=== PATIENT | female | born 1940 | race Caucasian/White ===

== ENCOUNTER 2017-02-09 07:44 | Day surgery (SDC) | payer OTHER, MEDICAID ==
[2017-02-09] MEDS ORDERED: LR 1,000 ML IV ONE (08:26)
[2017-02-09 08:40] VITALS: TEMP 98.1
--- NOTE | 2017-02-09 08:44 | CPEKG ---
Heart Rate: 84 RR Interval: 714 P-R Interval: 116 QRSD Interval: 78 QT Interval: 392 QTC Interval: 464 P Orange: -3 QRS Orange: -65 T Wave Orange: 46 EKG Severity - ABNORMAL ECG - EKG Impression: SINUS RHYTHM EKG Impression: LEFT ANTERIOR FASCICULAR BLOCK EKG Impression: CONSIDER RVH W/ SECONDARY REPOL ABNORMALITY EKG Impression: ANTERIOR T WAVE ABNORMALITIES - CANNOT RULE OUT ISCHEMIA Electronically Signed By: Faustina Ridley 09-Feb-2017 11:54:13
--- NOTE | 2017-02-09 09:30 | PDGENHP ---
History & Physical Chief Complaint: DYSPHAGIA History of Present Illness: DYSPHAGIA Pertinent Past, Social, Family History: no tobacco or alcohol. fhx no colon cance. COPD need for oxygen Relevant Physical Exam: a+ox3. cta. s1s2. +Bs, soft nt Cardiorespiratory Assessment: class 4
--- NOTE | 2017-02-09 09:31 | PDANEPAE ---
ANE Past Medical History - Cardiovascular History Hx Hypertension: Yes Hx Arrhythmias: Yes Hx Chest Pain: No Hx Coronary Artery / Peripheral Vascular Disease: Yes Hx CHF / Valvular Disease: Yes Hx Palpitations: Yes Cardiovascular History Comment: HYPERLIPIDEMIA - Pulmonary History Hx COPD: Yes Hx Asthma/Reactive Airway Disease: Yes Hx Recent Upper Respiratory Infection: No Hx Oxygen in Use at Home: Yes O2 in Use at Home (L/minute): O2 2L CONT. Hx Sleep Apnea: No Sleep Apnea Screening Result - Last Documented: Negative - Neurologic History Hx Cerebrovascular Accident: Yes Neurologic History Comment: RESTLESS LEG SYNDROME - Endocrine History Hx Diabetes: Yes Endocrine History Comment: DM II - Neurological & Psychiatric Hx Hx Neurological and Psychiatric Disorders: Yes Neurological / Psychiatric History Comment: DEPRESSIVE DISORDER. ANXIETY - GI History Hx Gastrointestinal Disorders: Yes Gastrointestinal History Comment: GERD. CONSTIPATION - Other Health History Other Health History: BEHCET'S DISEASE. OSTEOARTHRITIS. GLOSSITIS ANE Review of Systems Review of Systems: - Exercise capacity METS (RN): 3 METS ANE Patient History - Allergies Allergies/Adverse Reactions: adhesive tape Allergy (Verified 02/08/17 18:40) Sulfa (Sulfonamide Antibiotics) Allergy (Verified 02/08/17 18:39) warfarin [From Coumadin] Allergy (Verified 02/08/17 18:39) - Home Medications Home Medications: Aspirin 02/08/17 [Last Taken Unknown] Ativan 02/08/17 [Last Taken Unknown] Celexa 02/08/17 [Last Taken Unknown] Colchicine 02/08/17 [Last Taken Unknown] Flonase Nasal Lotus 02/08/17 [Last Taken Unknown] Herbals/Supplements -Info Only 02/08/17 [Last Taken Unknown] Lipitor 02/08/17 [Last Taken Unknown] Metformin HCl 02/08/17 [Last Taken Unknown] Mucinex 02/08/17 [Last Taken Unknown] Justice 5/325 (*) 02/08/17 [Last Taken Unknown] Nystatin 02/08/17 [Last Taken Unknown] Pantoprazole Sodium 02/08/17 [Last Taken Unknown] Requip 02/08/17 [Last Taken Unknown] Senna 02/08/17 [Last Taken Unknown] Spiriva Inhaler (RX) 02/08/17 [Last Taken Unknown] Symbicort 80-4.5 Mcg Inhaler 02/08/17 [Last Taken Unknown] Triamcinolone 0.025% 02/08/17 [Last Taken Unknown] - NPO status NPO Since - Liquids (Date): 02/08/17 NPO Since - Liquids (Time): 19:30 NPO Since - Solids (Date): 02/08/17 NPO Since - Solids (Time): 19:30 - Smoking Hx Smoking Status: Never smoked ANE Labs/Vital Signs - Vital Signs Blood Pressure: 144/89 Heart Rate: 88 Respiratory Rate: 16 O2 Sat (%): 96 Height: 167.64 cm Weight: 79.832 kg ANE Physical Exam - Airway Neck exam: FROM Mallampati Score: Class 2 Mouth exam: dentures - Pulmonary Pulmonary: reduced air movement, expiratory wheeze, other (chronic respiratory insufficency, end stage COPD) - Cardiovascular Cardiovascular: regular rate and rhythym, no murmur, rub, or gallop - ASA Status ASA Status: IV ANE Anesthesia Plan Anesthesia Plan: MAC
[2017-02-09] MEDS ORDERED: PROPOFOL 200 MG/20 ML VIAL ONE (09:39)
[2017-02-09] MEDS ORDERED: ALBUTEROL 3 ML DEYVIAL IH PRN (09:43)
[2017-02-09] MEDS ORDERED: NALOXONE HCL 0.4 MG/ML INJ IVP PRN (09:43)
--- NOTE | 2017-02-09 10:21 | POSTANESTH ---
Post Anesthetic Evaluation Cardiovascular Status: Normal, Stable, Similar to Pre-Op Cond Respiratory Status: Normal, Stable, Similar to Pre-op Cond. Level of Consciousness/Mental Status: Can Participate in Eval Pain Control: Adequate, Prn Tx Ordered Nausea/Vomiting Control: Adequate, Prn Tx Ordered Complications Possibly Related to Anesthesia: None Noted
[2017-02-09 10:34] VITALS: O2SAT 96
--- NOTE | 2017-02-09 10:35 | GIREPORT ---
[facility] Surgical Services - Endoscopy Department Patient Name: Josie Mendoza Procedure Date: 02/09/2017 9:36 AM Patient Type: Outpatient Attending / ER Physician: Diana Narvaez Procedure: Upper GI endoscopy Indications: Dysphagia Providers: Panda Christian MD Medicines: Sedation Required Anesthesia Staff Assistance, IV general Complications: No immediate complications. Estimated blood loss: Minimal. Description of Procedure: After obtaining informed consent, the endoscope was passed under direct vision. Throughout the procedure, the patient's blood pressure, pulse, and oxygen saturations were monitored continuously. The Endoscope was intro duced through the mouth, and advanced to the second part of duodenum. The [facility] GI endoscopy was accomplished without difficulty. The patient tolerated th e procedure well. Findings: The gastroesophageal junction was normal. A TTS dilator was passed through the scope. Dilation w ith an 18-19-20 mm balloon dilator was performed to 20 mm. The dilation site was examined and showed no change. Estimated blood loss: none. The examined esophagus was normal. A guidewire was placed and the scope was withdrawn. Dilation was performed with a Savary dilator with no resistance at 60 Fr. Estimated blood loss: none. Scattered moderate inflammation characterized by erythema and granularity was found in the gastr ic antrum. Biopsies were taken with a cold forceps for histology. Estimated blood loss was minimal. The examined duodenum was normal. The exam was otherwise without abnormality. Estimated Blood Loss: Estimated blood loss was minimal. Post Op Diagnosis: - Normal gastroesophageal junction. Dilated. No visible effect. Therefore passed the 59 [place] Savary, also with no visible effect. - Normal esophagus. Dilated. - Gastritis. Biopsied. - Normal examined duodenum. - The examination was otherwise normal. Recommendation: - Await pathology results. - My office will call with the pathology result with 5-7 days. If you have not heard from my off ice by 05-03, do not assume the pathology is normal, please call [phone] to get the pathology r eults. - Follow an antireflux regimen. - Use Protonix (pantoprazole) 40 mg PO daily. Take 30-60 minutes before breakfast - If dysphagia conitnues consider an ambulatory esophageal manometry at appointment to be schedu led. - Discharge patient to home (ambulatory). - Return to GI clinic PRN. - Return to primary care physician as previously scheduled. - Thank you for allowing me to help in your patient's care. Do not hesitate to call with any questions. Attending Participation: I personally performed the entire procedure. Anahi Mosqueda M.D Panda Christian MD 02/09/2017 10:35:45 AM Number of Addenda: 0 Note Initiated On: 02/09/2017 9:36 AM Total Procedure Duration Time 0 hours 9 minutes 54 seconds [email or web address]
[2017-02-09 10:48] VITALS: BP 140/84; PULSE 77; RESP 14
== END 2017-02-09 11:16 | disposition home or self-care (01) ==
LOC: FSGY 07:44
PROVIDERS: ATTEND Internal Medicine Gastroenterology
DX: R13.10 Dysphagia, unspecified (principal); K29.70 Gastritis, unspecified, without bleeding; K21.9 Gastro-esophageal reflux disease without esophagitis; J44.9 Chronic obstructive pulmonary disease, unspecified; E78.5 Hyperlipidemia, unspecified; G25.81 Restless legs syndrome; E11.9 Type 2 diabetes mellitus without complications; F32.9 Major depressive disorder, single episode, unspecified; F41.9 Anxiety disorder, unspecified; M35.2 Behcet's disease; Z88.2 Allergy status to sulfonamides
CPT/HCPCS: 43239; 43248; 43249; 93005; C1726; J2704

== ENCOUNTER → 2017-09-20 | Outpatient (CLI) | payer OTHER, MEDICAID ==
[~2017-09-20] MED LIST: IOPAMIDOL (ISOVUE-300) 100 ML BTL ONE
== END ==
LOC: FIMAGING 08:43
DX: R91.1 Solitary pulmonary nodule (principal); K44.9 Diaphragmatic hernia without obstruction or gangrene
CPT/HCPCS: 74160; Q9967

== ENCOUNTER 2018-08-02 08:26 | Day surgery (SDC) | payer OTHER, MEDICAID ==
--- NOTE | 2018-08-02 08:51 | PDANEPAE ---
ANE History of Present Illness dysphagia here for EGD ANE Past Medical History - Cardiovascular History Hx Hypertension: No Hx Arrhythmias: No Hx Chest Pain: No Hx Coronary Artery / Peripheral Vascular Disease: No Hx CHF / Valvular Disease: No Hx Palpitations: No Cardiovascular History Comment: HYPERLIPIDEMIA, hx of angina - Pulmonary History Hx COPD: Yes Hx Asthma/Reactive Airway Disease: No Hx Recent Upper Respiratory Infection: No Hx Oxygen in Use at Home: Yes O2 in Use at Home (L/minute): 2.L 24/7 Hx Sleep Apnea: No Sleep Apnea Screening Result - Last Documented: Negative - Neurologic History Hx Cerebrovascular Accident: No Hx Seizures: No Neurologic History Comment: RESTLESS LEG SYNDROME - Endocrine History Hx Diabetes: Yes Endocrine History Comment: DM II - Renal History Hx Renal Disorders: No - Liver History Hx Hepatic Disorders: No - Neurological & Psychiatric Hx Hx Neurological and Psychiatric Disorders: Yes Neurological / Psychiatric History Comment: DEPRESSIVE DISORDER. ANXIETY - Cancer History Hx Cancer: No - Congenital Disorder History Hx Congenital Disorders: No - GI History Hx Gastrointestinal Disorders: Yes Gastrointestinal History Comment: GERD. CONSTIPATION - Other Health History Other Health History: BEHCET'S DISEASE. OSTEOARTHRITIS. GLOSSITIS - Chronic Pain History Chronic Pain: Yes (abdominal) - Surgical History Prior Surgeries: none ANE Review of Systems Review of Systems: - Exercise capacity METS (RN): 3 METS ANE Patient History - Allergies Allergies/Adverse Reactions: adhesive tape Allergy (Verified 07/19/18 11:35) Sulfa (Sulfonamide Antibiotics) Allergy (Verified 07/19/18 11:35) warfarin [From Coumadin] Allergy (Verified 07/19/18 11:35) - Home Medications Home Medications: Aspirin 02/08/17 [Last Taken Unknown] Ativan 02/08/17 [Last Taken Unknown] Celexa 02/08/17 [Last Taken Unknown] Colchicine 02/08/17 [Last Taken Unknown] Flonase Nasal Frakes 02/08/17 [Last Taken Unknown] Herbals/Supplements -Info Only 02/08/17 [Last Taken Unknown] Lipitor 02/08/17 [Last Taken Unknown] Metformin HCl 02/08/17 [Last Taken Unknown] Mucinex 02/08/17 [Last Taken Unknown] Greybull 5/325 (*) 02/08/17 [Last Taken Unknown] Nystatin 02/08/17 [Last Taken Unknown] Pantoprazole Sodium 02/08/17 [Last Taken Unknown] Requip 02/08/17 [Last Taken Unknown] Senna 02/08/17 [Last Taken Unknown] Spiriva Inhaler (RX) 02/08/17 [Last Taken Unknown] Symbicort 80-4.5 Mcg Inhaler 02/08/17 [Last Taken Unknown] Triamcinolone 0.025% 02/08/17 [Last Taken Unknown] - NPO status NPO Status: no food or drink >8 hours - Anes Hx Anes Hx: no prior problems - Smoking Hx Smoking Status: Never smoked - Alcohol Use Alcohol Use: None - Family Anes Hx Family Anes Hx: none Family Hx Anesthesia Complications: unknown ANE Labs/Vital Signs - Vital Signs Height: 167.64 cm Weight: 82.645 kg ANE Physical Exam - Airway Neck exam: FROM Mallampati Score: Class 2 Mouth exam: dentures - Pulmonary Pulmonary: no respiratory distress - Cardiovascular Cardiovascular: regular rate and rhythym - ASA Status ASA Status: III ANE Anesthesia Plan Anesthesia Plan: GA with mask Total IV Anesthesia: Yes
[2018-08-02] MEDS ORDERED: LR 1,000 ML IV ONE (09:16)
[2018-08-02] MEDS ORDERED: PROPOFOL/EMULSION 500 MG/50 ML BOTTLE IV ONE (09:55)
--- NOTE | 2018-08-02 10:04 | PDGENHP ---
History & Physical Chief Complaint: dysphagia History of Present Illness: dysphagia. gerd. hb Pertinent Past, Social, Family History: no tobaco quit 9 years. alcohol - very rare. FHx - no cancer gi tract. copd, dm Relevant Physical Exam: A+Ox3. CTA. S1S2. +BS, soft epi tenderness Cardiorespiratory Assessment: class 3
[2018-08-02] MEDS ORDERED: NALOXONE HCL 0.4 MG/ML INJ IVP PRN (10:24)
--- NOTE | 2018-08-02 10:32 | POSTANESTH ---
Post Anesthetic Evaluation Cardiovascular Status: Normal, Stable, Similar to Pre-Op Cond Respiratory Status: Normal, Stable, Similar to Pre-op Cond. Level of Consciousness/Mental Status: Moderately Sleepy Pain Control: Adequate, Prn Tx Ordered Nausea/Vomiting Control: Adequate, Prn Tx Ordered Complications Possibly Related to Anesthesia: None Noted
--- NOTE | 2018-08-02 10:38 | GIREPORT ---
[facility] Surgical Services - Endoscopy Department Patient Name: Josie Mendoza Procedure Date: 08/02/2018 9:47 AM Patient Type: Outpatient Attending MD/ ER Physician: Elvis Christian MD Procedure: Upper GI endoscopy Indications: Dysphagia Providers: Elvis Christian MD Referring MD: Jose Nguyen MD Medicines: Propofol per Anesthesia = IV general with spont resps Complications: No immediate complications. Estimated blood loss: Minimal. Description of Procedure: After obtaining informed consent, the endoscope was passed under direct vision. Throughout the procedure, the patient's blood pressure, pulse, and oxygen saturations were monitored continuously. The Endoscope was intro duced through the mouth, and advanced to the third part of duodenum. The uppe r GI endoscopy was accomplished without difficulty. The patient tolerated th e procedure well. Findings: The examined esophagus was normal. Biopsies were obtained from the prox imal and distal esophagus with cold forceps for histology of suspected eosinophilic esophagitis. Estimated blood loss was minimal. A guidewire was placed and the scope was withdrawn. Dilation was performed with a Savar y dilator with no resistance at 60 Fr. The dilation site was examined following endoscope reinsertion and showed no change. Estimated blood l oss: none. A small hiatal hernia was present. The examined duodenum was normal. The exam was otherwise without abnormality. Estimated Blood Loss: Estimated blood loss was minimal. Post Op Diagnosis: - Normal esophagus. Biopsied. Dilated with NO dilation noted - Small hiatal hernia. - Normal examined duodenum. - The examination was otherwise normal. Recommendation: - Await pathology results. - My office will call with the pathology result with 5-7 days. If you h ave not heard from my office by 12-14, do not assume the pathology is kelly l, please call [phone] to get the pathology results. - Follow an antireflux regimen. - Continue present medications. - Perform routine esophageal manometry at appointment to be scheduled. - Discharge patient to home (ambulatory). - Return to GI clinic after studies are complete. - Return to primary care physician as previously scheduled. - Thank you for allowing me to help in your patient's care. Do not hesi jean to call with any questions. Attending Participation: I personally performed the entire procedure. Anahi Mosqueda M.D Elvis Christian MD 08/02/2018 10:38:03 AM This report has been signed electronicallyMatthew MD Anahi Number of Addenda: 0 Note Initiated On: 08/02/2018 9:47 AM [email or web address]
[2018-08-02] MEDS ORDERED: ONDANSETRON 4 MG/2 ML VIAL ONE (10:40)
[2018-08-02] MEDS ORDERED: ONDANSETRON 4 MG/2 ML VIAL IVP PRN (11:07)
[2018-08-02 11:23] VITALS: BP 121/71
== END 2018-08-02 11:43 | disposition home or self-care (01) ==
LOC: FSGY 08:26
PROVIDERS: ATTEND Internal Medicine Gastroenterology
DX: R13.10 Dysphagia, unspecified (principal); K21.9 Gastro-esophageal reflux disease without esophagitis; K44.9 Diaphragmatic hernia without obstruction or gangrene; E78.5 Hyperlipidemia, unspecified; E11.9 Type 2 diabetes mellitus without complications; G25.81 Restless legs syndrome; F32.9 Major depressive disorder, single episode, unspecified; F41.9 Anxiety disorder, unspecified
CPT/HCPCS: J2405; J2704

== ENCOUNTER 2018-10-24 22:28 | Inpatient (IN) | payer OTHER, MEDICAID | END 2018-10-30 13:10 | LOC: F3E 10-25 01:36 ==